=== PATIENT | female | born 1985 | race African-American/Black ===

== ENCOUNTER 2019-10-26 09:08 | Emergency (ER) | payer BC, OTHER ==
[2019-10-26 09:15] VITALS: PULSE 77; RESP 18; TEMP 98.3
--- NOTE | 2019-10-26 09:45 | ED ---
General Adult HPI - General Chief complaint: GI Bleed Stated complaint: Bloody stool Time Seen by Provider: 10/26/19 09:19 Source: patient, RN notes reviewed Mode of arrival: ambulatory Limitations: no limitations - History of Present Illness Initial comments: 34-year-old female without any significant past medical history presents to the emergency department for rectal bleeding. Patient states that she had a bowel movement and when she went to wipe she noticed bright red blood on the toilet. States she became concerned. States this happened one other time about a month ago. Patient denies any abdominal pain. Denies any lightheadedness or diz ziness. Denies diarrhea or mucousy stool. Denies any black stools.Patient has no other complaints at this time including shortness of breath, chest pain, abdominal pain, nausea or vomiting, headache, or visual changes. - Related Data Home Medications Medication Instructions Recorded Confirmed No Known Home Medications 09/01/15 09/01/15 Allergies Allergy/AdvReac Type Severity Reaction Status Date / Time No Known Allergies Allergy Verified 10/26/19 09:15 Review of Systems ROS Statement: Those systems with pertinent positive or pertinent negative responses have been documented in the HPI. ROS Other: All systems not noted in ROS Statement are negative. Past Medical History Past Medical History: No Reported History History of Any Multi-Drug Resistant Organisms: None Reported Past Surgical History: Tubal Ligation Past Psychological History: No Psychological Hx Reported Smoking Status: Never smoker Past Alcohol Use History: Occasional Past Drug Use History: None Reported General Exam Limitations: no limitations General appearance: alert, in no apparent distress Head exam: Present: atraumatic, normocephalic, normal inspection Eye exam: Present: normal appearance, PERRL, EOMI. Absent: scleral icterus, conjunctival injection, periorbital swelling ENT exam: Present: normal exam, mucous membranes moist Neck exam: Present: normal inspection, full ROM. Absent: tenderness, meningismus, lymphadenopathy Respiratory exam: Present: normal lung sounds bilaterally. Absent: respiratory distress, wheezes, rales, rhonchi, stridor Cardiovascular Exam: Present: regular rate, normal rhythm, normal heart sounds. Absent: systolic murmur, diastolic murmur, rubs, gallop, clicks GI/Abdominal exam: Present: soft, normal bowel sounds. Absent: distended, tenderness, guarding, rebound, rigid Rectal exam: Present: normal inspection, normal rectal tone, other (mariela belcher present for exam) Course Vital Signs 10/26/19 09:13 Temperature 98.3 F Pulse Rate 77 Respiratory 18 Rate Blood Pressure 152/85 O2 Sat by Pulse 99 Oximetry Medical Decision Making - Medical Decision Making Patient is well-appearing, nontoxic, stable. Vitals are stable. Physical exam unremarkable. No obvious bleeding at this time. No abdominal tenderness. CBC CMP unremarkable. Stool occult blood is positive. At this time patient has only had one episode of rectal bleeding and only noticed it when she wiped. Recommend that she follow up with GI and return if she has further episodes. Discussed the importance of getting a colonoscopy. - Lab Data Result diagrams: 10/26/19 09:34 10/26/19 09:34 Lab Results 10/26/19 10/26/19 10/26/19 Range/Units 09:34 09:34 09:34 WBC 6.4 (3.8-10.6) k/uL RBC 5.13 (3.80-5.40) m/uL Hgb 13.5 (11.4-16.0) gm/dL Hct 42.8 (34.0-46.0) % MCV 83.5 (80.0-100.0) fL MCH 26.3 (25.0-35.0) pg MCHC 31.5 (31.0-37.0) g/dL RDW 14.0 (11.5-15.5) % Plt Count 372 (150-450) k/uL Neutrophils % 49 % Lymphocytes % 42 % Monocytes % 2 % Eosinophils % 4 % Basophils % 0 % Neutrophils # 3.1 (1.3-7.7) k/uL Lymphocytes # 2.6 (1.0-4.8) k/uL Monocytes # 0.2 (0-1.0) k/uL Eosinophils # 0.2 (0-0.7) k/uL Basophils # 0.0 (0-0.2) k/uL PT 10.3 (9.0-12.0) sec INR 1.0 (<1.2) APTT 26.4 (22.0-30.0) sec Sodium (137-145) mmol/L Potassium (3.5-5.1) mmol/L Chloride (98-107) mmol/L Carbon Dioxide (22-30) mmol/L Anion Gap mmol/L BUN (7-17) mg/dL Creatinine (0.52-1.04) mg/dL Est GFR (CKD-EPI)AfAm (>60 ml/min/1.73 sqM) Est GFR (CKD-EPI)NonAf (>60 ml/min/1.73 sqM) Glucose (74-99) mg/dL Calcium (8.4-10.2) mg/dL Stool Occult Blood Positive H (Negative) 10/26/19 Range/Units 09:34 WBC (3.8-10.6) k/uL RBC (3.80-5.40) m/uL Hgb (11.4-16.0) gm/dL Hct (34.0-46.0) % MCV (80.0-100.0) fL MCH (25.0-35.0) pg MCHC (31.0-37.0) g/dL RDW (11.5-15.5) % Plt Count (150-450) k/uL Neutrophils % % Lymphocytes % % Monocytes % % Eosinophils % % Basophils % % Neutrophils # (1.3-7.7) k/uL Lymphocytes # (1.0-4.8) k/uL Monocytes # (0-1.0) k/uL Eosinophils # (0-0.7) k/uL Basophils # (0-0.2) k/uL PT (9.0-12.0) sec INR (<1.2) APTT (22.0-30.0) sec Sodium 139 (137-145) mmol/L Potassium 4.0 (3.5-5.1) mmol/L Chloride 105 (98-107) mmol/L Carbon Dioxide 22 (22-30) mmol/L Anion Gap 12 mmol/L BUN 11 (7-17) mg/dL Creatinine 0.65 (0.52-1.04) mg/dL Est GFR (CKD-EPI)AfAm >90 (>60 ml/min/1.73 sqM) Est GFR (CKD-EPI)NonAf >90 (>60 ml/min/1.73 sqM) Glucose 116 H (74-99) mg/dL Calcium 9.4 (8.4-10.2) mg/dL Stool Occult Blood (Negative) Disposition Clinical Impression: Hematochezia Disposition: HOME SELF-CARE Condition: Good Instructions (If sedation given, give patient instructions): Gastrointestinal Bleeding (ED) Additional Instructions: Please follow up with GI in 1-2 days. You would benefit likely from a colonoscopy. If you have a significant increase in bleeding or have lightheadedness chest pain or shortness of breath return to the emergency department. Is patient prescribed a controlled substance at d/c from ED?: No Referrals: Audra Casillas MD [Primary Care Provider] - 1-2 days Janeth Malik MD [STAFF PHYSICIAN] - 1-2 days Time of Disposition: 10:18
[2019-10-26 09:54] LABS: Basophils % (A) 0 %; Eosinophils # (A) 0.2 k/uL (0-0.7); Eosinophils % (A) 4 %; HCT 42.8 % (34.0-46.0); HGB 13.5 gm/dL (11.4-16.0); Lymphocytes # (A) 2.6 k/uL (1.0-4.8); Lymphocytes % (A) 42 %; MCH 26.3 pg (25.0-35.0); MCHC 31.5 g/dL (31.0-37.0); MCV 83.5 fL (80.0-100.0); Mean Platelet Volume 7.5; Monocytes # (A) 0.2 k/uL (0-1.0); Monocytes % (A) 2 %; Neutrophils # (A) 3.1 k/uL (1.3-7.7); Neutrophils % (A) 49 %; Platelet Count 372 k/uL (150-450); RBC 5.13 m/uL (3.80-5.40); WBC 6.4 k/uL (3.8-10.6)
[2019-10-26 10:02] LABS: African American GFR (CKD) >90 (>60 ml/min/1.73 sqM); Anion Gap 12 mmol/L; Blood Urea Nitrogen 11 mg/dL (7-17); Calcium 9.4 mg/dL (8.4-10.2); Carbon Dioxide 22 mmol/L (22-30); Chloride 105 mmol/L (98-107); Glucose 116 mg/dL (74-99); Non-African American GFR(CKD) >90 (>60 ml/min/1.73 sqM); Sodium 139 mmol/L (137-145)
[2019-10-26 10:03] LABS: Partial Thromboplastin Time 26.4 sec (22.0-30.0); Prothrombin Time 10.3 sec (9.0-12.0)
[2019-10-26 10:40] VITALS: BP 138/98
== END 2019-10-26 10:30 | disposition home or self-care (01) ==
LOC: SUPCPDRO 09:08 → EC 09:08
DX: K92.1 Melena (principal)
CPT/HCPCS: 36415; 80048; 82272; 85025; 85610; 85730; 99284

== ENCOUNTER 2020-12-09 19:04 | Emergency (ER) | payer OTHER ==
[2020-12-09 19:08] VITALS: BP 147/91; RESP 20; TEMP 98.5
[2020-12-09] MEDS ORDERED: ACETAMINOPHEN TAB 500 MG TAB PO STA (19:19)
[2020-12-09] MEDS ORDERED: AMOXIC-POT CLAV 875MG STARTER PACK 2 TAB BTL PO STA (19:19)
[2020-12-09] MEDS ORDERED: BENZOCAINE 20 % GEL 15 GM TUBE MM STA (19:25)
--- NOTE | 2020-12-09 19:25 | ED ---
General Adult HPI - General Chief complaint: Dental/Oral Stated complaint: Facial Swelling Time Seen by Provider: 12/09/20 19:12 Source: patient Mode of arrival: ambulatory Limitations: no limitations - History of Present Illness Initial comments: 35 year-old female patient presents to the emergency department for left upper dental pain. States that she has had pain for the last few days. States over the last two days she has developed swelling to the left side of her face. States that when she sleeps the swelling gets worse. She denies any fever or chills. Has been taking amoxicillin and was prescribed azithromycin at the dentist office today. She denies any trismus or difficulty swallowing. Denies any vomiting. - Related Data Previous Rx's Medication Instructions Recorded Amoxic-Pot Clav 875-125Mg 1 tab PO Q12HR #20 tablet 12/09/20 [Augmentin 875-125] Fluconazole [Diflucan] 150 mg PO ONCE #2 tab 12/09/20 Allergies Allergy/AdvReac Type Severity Reaction Status Date / Time No Known Allergies Allergy Verified 12/09/20 19:08 Review of Systems ROS Statement: Those systems with pertinent positive or pertinent negative responses have been documented in the HPI. ROS Other: All systems not noted in ROS Statement are negative. Past Medical History Past Medical History: No Reported History History of Any Multi-Drug Resistant Organisms: None Reported Past Surgical History: Tubal Ligation Past Psychological History: No Psychological Hx Reported Smoking Status: Never smoker Past Alcohol Use History: Occasional Past Drug Use History: None Reported General Exam Limitations: no limitations General appearance: alert, in no apparent distress, other (Physical well- developed, well-nourished adult female patient in no acute distress. Vital signs upon presentation are temperature 98.5F, pulse 122, respirations 20, blood pressure 147/91, pulse ox 99% on room air.) Eye exam: Present: normal appearance, PERRL, EOMI, other (No pain with EOM.). Absent: scleral icterus, conjunctival injection, periorbital swelling ENT exam: Present: normal oropharynx, mucous membranes moist, other (Broken tooth #14. There is gingival abscess noted. No drainage. Left sided facial swelling extending up to the left eye. ) Neck exam: Present: normal inspection. Absent: tenderness, meningismus, lymphadenopathy Respiratory exam: Present: normal lung sounds bilaterally. Absent: respiratory distress, wheezes, rales, rhonchi, stridor Cardiovascular Exam: Present: regular rate, normal rhythm, normal heart sounds. Absent: systolic murmur, diastolic murmur, rubs, gallop, clicks GI/Abdominal exam: Present: soft, normal bowel sounds. Absent: distended, tenderness, guarding, rebound, rigid Neurological exam: Present: alert, oriented X3, CN II-XII intact Psychiatric exam: Present: normal affect, normal mood Skin exam: Present: warm, dry, intact, normal color. Absent: rash Course Vital Signs 12/09/20 19:06 Temperature 98.5 F Pulse Rate 122 H Respiratory 20 Rate Blood Pressure 147/91 O2 Sat by Pulse 99 Oximetry Procedures - Incision & Drainage Consent Obtained: verbal consent Indication: dental abscess Site: oral Size (cm): 1 Anesthetic Used: benzocaine 0.25% Amount (mLs): 1 (topical) Needle Aspiration Performed?: Yes I&D Drainage Obtained: Pus, Blood Patient Tolerated Procedure: well, no complications Medical Decision Making - Medical Decision Making 35-year-old female patient presents to the emergency department today for evaluation of left upper dental pain and swelling. Physical examination did reveal dental abscess to the bucchal surface of the left upper gingiva. Surrounding erythema. Abscess was drained as documented. Patient is started on Augmentin. She is given tylenol, declines other pain medication. She is instructed HER dentist on Friday. Return parameters were discussed in detail. She verbalizes understanding and agrees with this plan. Case discussed with my attending Dr. Garcia. Disposition Clinical Impression: Dental abscess Disposition: HOME SELF-CARE Condition: Good Instructions (If sedation given, give patient instructions): Dental Abscess (ED) Additional Instructions: Complete antibiotic prescription in full. Apply cool compresses to the outside of the face. Take tylenol and motrin for pain control. Follow-up with dentist on Friday. Return to the emergency department for any new, worsening, or concerning symptoms. Prescriptions: Amoxic-Pot Clav 875-125Mg [Augmentin 875-125] 1 tab PO Q12HR #20 tablet Fluconazole [Diflucan] 150 mg PO ONCE #2 tab Is patient prescribed a controlled substance at d/c from ED?: No Referrals: Audra Casillas MD [Primary Care Provider] - 1-2 days Time of Disposition: 19:54
[2020-12-09 20:01] VITALS: PULSE 100
== END 2020-12-09 20:01 | disposition home or self-care (01) ==
LOC: EC 19:04
DX: K04.7 Periapical abscess without sinus (principal)
CPT/HCPCS: 41800; 99282

== ENCOUNTER 2021-06-19 11:50 | Emergency (ER) | payer OTHER ==
[2021-06-19 12:09] VITALS: BP 131/86; PULSE 75; RESP 20; TEMP 98.9
--- NOTE | 2021-06-19 13:00 | XR ---
EXAMINATION TYPE: XR chest 2V DATE OF EXAM: 06/19/2021 COMPARISON: NONE HISTORY: Body aches and headache. Cough. TECHNIQUE: Frontal and lateral views of the chest are obtained. FINDINGS: There is no focal air space opacity, pleural effusion, or pneumothorax seen. The cardiac silhouette size is mildly enlarged. Underlying scoliosis. IMPRESSION: Mild cardiomegaly without acute pulmonary process.
--- NOTE | 2021-06-19 14:42 | ED ---
URI HPI - General Chief Complaint: Upper Respiratory Infection Stated Complaint: Fever/Weakness Time Seen by Provider: 06/19/21 12:05 Source: patient, EMS, RN notes reviewed Mode of arrival: EMS Limitations: no limitations - History of Present Illness Initial Comments: Patient is a 36-year-old female that presents to the emergency Department complaining of muscle aches fatigue and upper respiratory tract symptoms. Patient does have close exposure to her sister who is Covid-positive. Patient can emergency room to get evaluated. She denied any issues complaints she was well-appearing and comfortable in bed. She denied chest pain first breath headache nausea vomiting diarrhea constipation fever fatigue chills. - Related Data Home Medications Medication Instructions Recorded Confirmed No Known Home Medications 06/19/21 06/19/21 Allergies Allergy/AdvReac Type Severity Reaction Status Date / Time No Known Allergies Allergy Verified 06/19/21 14:04 Review of Systems ROS Statement: Those systems with pertinent positive or pertinent negative responses have been documented in the HPI. ROS Other: All systems not noted in ROS Statement are negative. Past Medical History Past Medical History: No Reported History History of Any Multi-Drug Resistant Organisms: None Reported Past Surgical History: Tubal Ligation Past Psychological History: No Psychological Hx Reported Smoking Status: Never smoker Past Alcohol Use History: Occasional Past Drug Use History: Marijuana General Exam Limitations: no limitations General appearance: alert, in no apparent distress Head exam: Present: atraumatic, normocephalic, normal inspection Eye exam: Present: normal appearance, PERRL, EOMI. Absent: scleral icterus, conjunctival injection, periorbital swelling ENT exam: Present: normal exam Neck exam: Present: normal inspection Respiratory exam: Present: normal lung sounds bilaterally. Absent: respiratory distress, wheezes, rales, rhonchi, stridor Cardiovascular Exam: Present: regular rate, normal rhythm, normal heart sounds. Absent: systolic murmur, diastolic murmur, rubs, gallop, clicks GI/Abdominal exam: Present: soft, normal bowel sounds. Absent: distended, tenderness, guarding, rebound, rigid Extremities exam: Present: normal inspection, full ROM, normal capillary refill. Absent: tenderness, pedal edema, joint swelling, calf tenderness Neurological exam: Present: alert, oriented X3 Psychiatric exam: Present: normal affect, normal mood Skin exam: Present: warm, dry, intact, normal color. Absent: rash Course Vital Signs 06/19/21 12:02 Temperature 98.9 F Pulse Rate 75 Respiratory 20 Rate Blood Pressure 131/86 O2 Sat by Pulse 100 Oximetry Medical Decision Making - Medical Decision Making 36-year-old female presenting with Covid like symptoms including muscle aches and weakness and close exposure to positive sister. Chest x-ray, saw ordered. Chest x-ray shows no acute card up on her process. Covid swab positive. Patient does meet criteria for monoclonal antibody. Patient will undergo monoclonal antibody infusion. Case discussed Dr. Diamond patient discharge home after. - Lab Data Lab Results 06/19/21 Range/Units 12:30 Coronavirus (PCR) Detected A (Not Detectd) - Radiology Data Radiology results: report reviewed, image reviewed Chest x-ray: Mild cardiomegaly with no acute cardiopulmonary process Disposition Clinical Impression: COVID Disposition: HOME SELF-CARE Condition: Stable Instructions (If sedation given, give patient instructions): Coronavirus Disease 2019 (COVID-19) Additional Instructions: Please return to the Emergency Department if symptoms worsen or any other concerns. Is patient prescribed a controlled substance at d/c from ED?: No Referrals: Audra Casillas MD [Primary Care Provider] - 1-2 days Time of Disposition: 14:50
[2021-06-19] MEDS ORDERED: BAMLANIVIMAB (EUA) 700 MG, ETESEVIMAB (EUA) 1,400 MG in SODIUM CHLORIDE 0.9% 50 ML IVPB ONE (15:30)
[2021-06-19] MEDS ORDERED: SODIUM CHLORIDE 0.9% 50 ML IVPB ONE (16:00)
== END 2021-06-19 18:33 | disposition home or self-care (01) ==
LOC: EC 11:50
DX: U07.1 COVID-19 (principal); F12.90 Cannabis use, unspecified, uncomplicated
CPT/HCPCS: 87635; 71046; 99284; 96365; J3490